=== PATIENT | female | born 1980 | race African-American/Black ===

== ENCOUNTER 2016-12-29 15:48 | Emergency (ER) | payer OTHER ==
[~2016-12-29] VITALS: Ht 162.6 cm; Wt 72.6 kg
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
[~2016-12-29 15:48] MED LIST: NECON PO
[2016-12-29 17:49] LABS: URINE SOURCE CLEAN CATCH
[2016-12-29 17:52] LABS: URINE APPEARANCE SL CLOUDY; URINE BLOOD NEG (NEG); URINE COLOR YELLOW; URINE GLUCOSE NEG (NORM); URINE KETONE 1+ (NEG); URINE LEUKOCYTE ESTERASE NEG (NEG); URINE NITRATE NEG (NEG); URINE SPECIFIC GRAVITY >=1.030 (1.003-1.035)
[2016-12-29 17:55] LABS: MICRO INDICATED? NO; URINE BILIRUBIN NEG (NEG); URINE PROTEIN NEG (NEG)
== END 2016-12-29 19:00 | disposition home or self-care (01) ==
LOC: SED 15:48
PROVIDERS: Nurse Practitioner Family
DX: S16.1XXA Strain of muscle, fascia and tendon at neck level, initial encounter (principal); Z79.899 Other long term (current) drug therapy; X58.XXXA Exposure to other specified factors, initial encounter; Y92.89 Other specified places as the place of occurrence of the external cause
CPT/HCPCS: 70360; 70486; 72040; 72072; 81003; 84703; 99284